=== PATIENT | female | born 1995 | race Caucasian/White ===

== ENCOUNTER 2020-12-18 04:34 | Emergency (ER) | payer MEDICAID ==
[~2020-12-18] VITALS: Ht 165.1 cm; Wt 63.5 kg
[2020-12-18 04:45] VITALS: BP_SYST 128
[2020-12-18] MEDS ORDERED: IBUPROFEN 600 MG TABLET PO ONE (05:00)
[2020-12-18] MEDS ORDERED: IBUPROFEN 600 MG TABLET ONE (05:02)
[2020-12-18 06:25] VITALS: BP_SYST 128
== END 2020-12-18 06:25 | disposition home or self-care (01) ==
LOC: SED 04:34
DX: S93.402A Sprain of unspecified ligament of left ankle, initial encounter (principal); W01.0XXA Fall on same level from slipping, tripping and stumbling without subsequent striking against object, initial encounter; Y93.89 Activity, other specified; Y92.89 Other specified places as the place of occurrence of the external cause; Y99.8 Other external cause status
CPT/HCPCS: 73560-TC; 99284

== ENCOUNTER 2022-02-01 18:46 | Emergency (ER) | payer MEDICAID, SELFPAY ==
[~2022-02-01] VITALS: Ht 165.1 cm; Wt 67.1 kg
[2022-02-01 18:56] VITALS: BP_SYST 119
--- NOTE | 2022-02-01 19:08 | NUR ---
C/C right sided flank pain x 4 days, patient states she had been treated three days ago by her clinic for a UTI infection. Was prescribed Cipro, patient states she has not been taking the medication because it makes her feel nauseated.
--- NOTE | 2022-02-01 19:10 | NUR ---
Urine cup provided for sample
--- NOTE | 2022-02-01 19:11 | NUR ---
MD at bedside assessing patient
--- NOTE | 2022-02-01 19:25 | NUR ---
REPORT RECIEVED FROM DAYSHIFT NURSE, PT IS GRIMACING IN PAIN AND ATTEMPTING TO RELAX. PT ENCOUARGED TO SIT IN A POSITION OF COMFORT. WILL MONITOR NEEDED
[2022-02-01] MEDS ORDERED: IBUPROFEN 800 MG TABLET PO ONE (19:30)
[2022-02-01] MEDS ORDERED: ACETAMINOPHEN 500 MG TABLET PO ONE (19:30)
[2022-02-01] MEDS ORDERED: ONDANSETRON HCL 4 MG/2 ML VIAL IVP ONE ×2 (19:30→21:30)
[2022-02-01] MEDS ORDERED: NACL 0.9% 1,000 ML IV ONE ×3 (19:30→21:30)
--- NOTE | 2022-02-01 19:58 | NUR ---
Covid-19 and influenza swab have been collected and sent to the lab.
[2022-02-01 20:09] LABS: BILIRUBIN,URINE NEGATIVE (NEGATIVE); BLOOD, URINE 1+ (NEGATIVE); COLOR,URINE YELLOW (YELLOW); GLUCOSE,URINE NEGATIVE (NEGATIVE); KETONES,URINE NEGATIVE (NEGATIVE); LEUKOCYTE ESTERASE ,URINE 2+ (NEGATIVE); NITRITE, URINE NEGATIVE (NEGATIVE); PROTEIN URINE NEGATIVE (NEGATIVE); UROBILINOGEN,URINE 0.2 (0.2-1.0)
[2022-02-01 20:13] VITALS: BP_SYST 134
[2022-02-01 20:30] LABS: CLARITY/URINE HAZY (CLEAR)
[2022-02-01 20:32] LABS: CALCIUM 9.2 mg/dL (8.4-11.0); CREATININE 0.74 mg/dL (0.55-1.30); POTASSIUM 3.5 mmol/L (3.5-5.1)
[2022-02-01 20:38] LABS: ALBUMIN 3.9 g/dL (3.4-4.8)
[2022-02-01 20:50] LABS: BASOPHILS # (AUTO) 0.4 K/uL (0.0-0.2); BASOPHILS % (AUTO) 2.6 % (0.0-2.0); EOSINOPHILS % (AUTO) 0.3 % (0.0-4.0); HEMATOCRIT 40.1 % (36-48); HEMOGLOBIN 13.4 g/dL (12.0-16.0); LYMPHOCYTES # (AUTO) 1.3 K/uL (1.0-5.5); LYMPHOCYTES % (AUTO) 9.5 % (20.5-51.5); MEAN CORPUSCULAR HEMOGLOBIN 30 pg (27-31); MEAN CORPUSCULAR HGB CONC 34 % (32-36); MEAN CORPUSCULAR VOLUME 90 fL (79.0-98.0); MONOCYTES # (AUTO) 1.5 K/uL (0.0-1.0); MONOCYTES % (AUTO) 10.4 % (1.7-9.3); NEUTROPHILS # (AUTO) 10.8 K/uL (1.8-7.7); NEUTROPHILS % (AUTO) 77.2 % (40.0-70.0); PLATELET COUNT (AUTO) 232 K/uL (130-430); RED BLOOD CELL COUNT(AUTO) 4.44 MIL/uL (4.2-6.2); RED CELL DISTRIBUTION WIDTH 12.4 % (9.0-15.0); WHITE BLOOD COUNT (AUTO) 13.9 K/uL (4.8-10.8)
[2022-02-01 20:52] LABS: BACTERIA,URINE MODERATE /HPF (None Seen); MUCUS,URINE 1+ /LPF (None Seen)
[2022-02-01] MEDS ORDERED: cephALEXin 500 MG CAPSULE PO ONE (21:15)
[2022-02-01] MEDS ORDERED: CEPH-548 PO (21:21)
[2022-02-01] MEDS ORDERED: PHEN-890 PO (21:24)
[2022-02-01] MEDS ORDERED: ONDA-8 TL (21:24)
[2022-02-01] MEDS ORDERED: KETOROLAC TROMETHAMINE 15 MG VIAL IVP ONE (21:30)
--- NOTE | 2022-02-01 22:19 | NUR ---
PT HAS 2 LITERS OF FLUID RUNNING CONCURRENTLY. PT PENDING DISCHARGE AFTER ADMINISTRATION OF FLUIDS. WILL MONITOR NEEDED
--- NOTE | 2022-02-01 23:07 | NUR ---
PT FLUIDS COMPLETE. PT IV REMOVED CATHTER INTACT, CLEAN GAUZE APPLIED TO SITE. PT TOLERATED WELL. PT PROVIDED WITH HOMECARE INSTRUCTIONS, PRESRIPTION, AND OFF WORK NOTE. PT ENCOURAGED TO COMPLETE ENTIRE PRESCRIPTION AND TO CONSUME PLENTY OF FLUIDS. PT ADVISED TO FOLLOW UP WITH PRIMARY CARE DOCTOR WITHIN 3 DAYS, ALL QUESTIONS ANSWERED. PT DISCHARGED WITH ALL BELONGINGS, AMBULATORY AND IN STABLE CONDITION.
== END 2022-02-01 23:15 | disposition home or self-care (01) ==
LOC: SED 18:46
DX: N10 Acute pyelonephritis (principal); Z79.899 Other long term (current) drug therapy; Z20.822 Contact with and (suspected) exposure to COVID-19
CPT/HCPCS: 36415; 74177; 76376; 80053; 81000; 81025; 83690; 85025; 87086; 87426; 87804 ×2; 96361; 96374; 96375; 96376; 99285; J1885; J2405; J7030; Q9967

== ENCOUNTER 2023-07-10 23:56 | Emergency (ER) | payer MEDICAID ==
[~2023-07-10] VITALS: Ht 165.1 cm; Wt 67.6 kg
[~2023-07-10 23:56] MED LIST: CEPH-548 PO; ONDA-8 TL; PHEN-890 PO
[2023-07-11 00:06] VITALS: BP_SYST 132; PULSE 81; RESP 18; TEMP 98.5; O2SAT 96
[2023-07-11] MEDS ORDERED: NACL 0.9% 1,000 ML IV ONE (00:15)
[2023-07-11] MEDS ORDERED: KETOROLAC TROMETHAMINE 30 MG VIAL IVP ONE (00:15)
[2023-07-11 00:30] LABS: BILIRUBIN,URINE NEGATIVE (NEGATIVE); BLOOD, URINE 2+ (NEGATIVE); CLARITY/URINE Clear (CLEAR); COLOR,URINE YELLOW (YELLOW); GLUCOSE,URINE NEGATIVE (NEGATIVE); KETONES,URINE NEGATIVE (NEGATIVE); NITRITE, URINE NEGATIVE (NEGATIVE); PROTEIN URINE NEGATIVE (NEGATIVE); UROBILINOGEN,URINE 0.2 (0.2-1.0)
[2023-07-11] MEDS ORDERED: ONDANSETRON HCL 4 MG/2 ML VIAL IVP ONE (00:30)
[2023-07-11 00:31] LABS: LEUKOCYTE ESTERASE ,URINE TRACE (NEGATIVE)
[2023-07-11 01:01] LABS: BASOPHILS # (AUTO) 0.1 K/uL (0.0-0.2); BASOPHILS % (AUTO) 0.8 % (0.0-2.0); EOSINOPHILS # (AUTO) 0.2 K/uL (0.0-0.4); EOSINOPHILS % (AUTO) 1.5 % (0.0-4.0); HEMATOCRIT 37.6 % (36-48); HEMOGLOBIN 12.6 g/dL (12.0-16.0); LYMPHOCYTES # (AUTO) 3.1 K/uL (1.0-5.5); LYMPHOCYTES % (AUTO) 29.6 % (20.5-51.5); MEAN CORPUSCULAR HEMOGLOBIN 31 pg (27-31); MEAN CORPUSCULAR HGB CONC 34 % (32-36); MEAN CORPUSCULAR VOLUME 91 fL (79.0-98.0); MONOCYTES # (AUTO) 0.8 K/uL (0.0-1.0); MONOCYTES % (AUTO) 7.3 % (1.7-9.3); NEUTROPHILS # (AUTO) 6.4 K/uL (1.8-7.7); NEUTROPHILS % (AUTO) 60.8 % (40.0-70.0); PLATELET COUNT (AUTO) 333 K/uL (130-430); RED BLOOD CELL COUNT(AUTO) 4.14 MIL/uL (4.2-6.2); RED CELL DISTRIBUTION WIDTH 12.7 % (9.0-15.0); WHITE BLOOD COUNT (AUTO) 10.5 K/uL (4.8-10.8)
[2023-07-11 01:09] LABS: ALBUMIN 3.6 g/dL (3.4-4.8); CALCIUM 8.6 mg/dL (8.4-11.0); CREATININE 0.86 mg/dL (0.55-1.30); POTASSIUM 4.1 mmol/L (3.5-5.1); TOTAL BILIRUBIN 0.7 mg/dL (0.0-1.0)
[2023-07-11 01:14] LABS: BACTERIA,URINE RARE /HPF (None Seen)
[2023-07-11] MEDS ORDERED: cefTRIAXone 2 GM VIAL ONE (01:52)
[2023-07-11] MEDS ORDERED: CEPH-548 PO (03:07)
[2023-07-11] MEDS ORDERED: HYDR-3917 PO (03:08)
[2023-07-11] MEDS ORDERED: MORPHINE 2 MG/ML INJ. SYRINGE IVP ONE (03:15)
[2023-07-11 03:18] VITALS: BP_SYST 109; PULSE 70; RESP 16; TEMP 98; O2SAT 98
== END 2023-07-11 03:18 | disposition home or self-care (01) ==
LOC: SED 23:56
DX: N12 Tubulo-interstitial nephritis, not specified as acute or chronic (principal); R10.31 Right lower quadrant pain; Z79.899 Other long term (current) drug therapy
CPT/HCPCS: 99285; 80053; 81000; 83690; 85025; 36415; 81025; 74176; 96365; 96375; 96361; 76376; J0696; J1885; J2270; J7030

== ENCOUNTER 2023-07-20 22:20 | Emergency (ER) | payer MEDICAID ==
[~2023-07-20] VITALS: Ht 165.1 cm; Wt 67.6 kg
[~2023-07-20 22:20] MED LIST changes: +HYDR-3917 PO
[2023-07-20 22:34] VITALS: BP_SYST 130; PULSE 83; RESP 18; TEMP 97; O2SAT 99
[2023-07-20] MEDS ORDERED: KETOROLAC TROMETHAMINE 60 MG/2 ML VIAL IM ONE (22:45)
[2023-07-20 23:18] LABS: BILIRUBIN,URINE NEGATIVE (NEGATIVE); COLOR,URINE YELLOW (YELLOW); GLUCOSE,URINE NEGATIVE (NEGATIVE); KETONES,URINE NEGATIVE (NEGATIVE); LEUKOCYTE ESTERASE ,URINE 1+ (NEGATIVE); NITRITE, URINE NEGATIVE (NEGATIVE); PROTEIN URINE NEGATIVE (NEGATIVE); UROBILINOGEN,URINE 0.2 (0.2-1.0)
[2023-07-20 23:26] LABS: BLOOD, URINE TRACE (NEGATIVE); CLARITY/URINE SLIGHTLY CLOUDY (CLEAR)
[2023-07-20 23:27] LABS: BACTERIA,URINE MODERATE /HPF (None Seen); WBC,URINE 20-50 /HPF (0-3); YEAST,URINE Few /HPF (None Seen)
[2023-07-21] MEDS ORDERED: MORPHINE 4 MG INJ. 4 MG/ML VIAL IVP ONE (00:15)
[2023-07-21] MEDS ORDERED: METOCLOPRAMIDE HCL 10 MG/2 ML VIAL IVP ONE (00:15)
[2023-07-21] MEDS ORDERED: ONDANSETRON HCL 4 MG/2 ML VIAL IVP ONE (00:15)
[2023-07-21] MEDS ORDERED: NACL 0.9% 1,000 ML IV ONE (00:15)
[2023-07-21 01:20] VITALS: TEMP 97
[2023-07-21] MEDS ORDERED: cefTRIAXone 1 GM in LIDOCAINE 1%, 20 ML MDV 2.1 ML IM ONE (01:45)
[2023-07-21] MEDS ORDERED: CIPR500T5 PO (01:45)
[2023-07-21 02:12] VITALS: BP_SYST 109; PULSE 64; RESP 18; O2SAT 98
== END 2023-07-21 02:00 | disposition home or self-care (01) ==
LOC: SED 22:20
DX: S16.1XXA Strain of muscle, fascia and tendon at neck level, initial encounter (principal); N39.0 Urinary tract infection, site not specified; G44.209 Tension-type headache, unspecified, not intractable; Z79.899 Other long term (current) drug therapy; X58.XXXA Exposure to other specified factors, initial encounter; Y93.89 Activity, other specified; Y92.89 Other specified places as the place of occurrence of the external cause; Y99.8 Other external cause status
CPT/HCPCS: 99284; 81000; 87086; 81025; 96372 ×2; 96374; 96375; 96361; J1885; J0696; J2001; J2765; J2405; J2270; J7030